=== PATIENT | male | born 1945 | race American Indian/Alaskan Native ===

== ENCOUNTER 2017-03-17 07:02 | Emergency (ER) | payer MEDICARE, BC ==
[2017-03-17 07:25] LABS: #Eosinphils 0.1 thou/uL (0.0-0.7); #Lymphocytes 1.1 thou/uL (1.20-3.40); #Monocytes 1.1 thou/uL (0.11-0.59); #Neutrophils 6.2 thou/uL (1.40-6.50); %Basophils 0.5 % (0.0-1.0); %Lymphocytes 13.3 % (21.0-51.0); %Monocytes 12.4 % (0.0-10.0); Hematocrit 49.1 % (42.0-52.0); Mean Platelet Volume 7.2 fL (7.4-10.4); Red Blood Cell (RBC) Count 5.59 mill/uL (4.70-6.10); White Blood Cell (WBC) Count 8.6 thou/uL (4.8-10.8)
[2017-03-17 07:51] LABS: Troponin I Less than 0.010 ng/mL (< 0.028)
--- NOTE | 2017-03-17 08:11 | RAD ---
PORTABLE CHEST ONE VIEW: 03/17/2017 7:41 a.m. HISTORY: Chest pain. FINDINGS: The heart size is normal. The lungs are well expanded without focal areas of consolidation, pneumoth orax, or pleural effusions. IMPRESSION: No radiographic evidence of acute cardiopulmonary process. POS: [facility]
[2017-03-17 08:51] LABS: ALT (SGPT) 19 U/L (8-55); AST (SGOT) 15 U/L (5-34); Alkaline Phosphatase 87 U/L (40-150); Anion Gap 14 mmol/L (10-20); BUN (Urea Nitrogen) 15 mg/dL (8.4-25.7); Bilirubin, Total 1.2 mg/dL (0.2-1.2); CK (CPK) 64 U/L (30-200); Calc. Creatinine Clearance 0 mL/min (70-130); Calcium 9.2 mg/dL (7.8-10.44); Carbon Dioxide 24 mmol/L (23-31); Chloride 101 mmol/L (98-107); Estimated GFR-MDRD Greater than 90; Protein, Total 7.1 g/dL (5.8-8.1)
[2017-03-17] MEDS ORDERED: Metoprolol Tartrate 5 MG/5 ML VIAL ONE (09:25)
--- NOTE | 2017-03-20 15:00 | EKG ---
Test Reason : FAST HEARTRATE Blood Pressure : / mmHG Vent. Rate : 109 BPM Atrial Rate : 109 BPM P-R Int : 158 ms QRS Dur : 116 ms QT Int : 348 ms P-R-T Axes : 059 -35 -02 degrees QTc Int : 468 ms Sinus tachycardia Possible Left atrial enlargement Left axis deviation Incomplete right bundle branch block Abnormal ECG Confirmed by STACY LAMB D.O. ([id number]), tape editor YINA ROA ([id number]) on 03/20/2017 2:59:30 PM Referred By: ZAINAB Confirmed By:STACY LAMB D.O.
--- NOTE | 2017-03-20 15:13 | EKG ---
Test Reason : #2 Blood Pressure : / mmHG Vent. Rate : 106 BPM Atrial Rate : 106 BPM P-R Int : 160 ms QRS Dur : 122 ms QT Int : 350 ms P-R-T Axes : 049 -30 004 degrees QTc Int : 464 ms Sinus tachycardia Left axis deviation Non-specific intra-ventricular conduction delay Abnormal ECG No changes Confirmed by STACY LAMB D.O. ([id number]), brands editor YINA ROA ([id number]) on 03/20/2017 3:13:17 PM Referred By: Confirmed By:STACY LAMB D.O.
== END 2017-03-17 10:55 | disposition home or self-care (01) ==
LOC: ERS 07:02
DX: R00.0 Tachycardia, unspecified (principal); E11.9 Type 2 diabetes mellitus without complications; E78.5 Hyperlipidemia, unspecified; Z86.73 Personal history of transient ischemic attack (TIA), and cerebral infarction without residual deficits; Z79.899 Other long term (current) drug therapy; Z79.84 Long term (current) use of oral hypoglycemic drugs
CPT/HCPCS: 36415; 71010; 80053; 80061; 82550; 82553; 84484; 85025; 93005; 94760; 96361; 96374

== ENCOUNTER 2018-09-13 12:38 | Outpatient (CLI) | payer MEDICARE, BC ==
--- NOTE | 2018-09-13 15:19 | MRI ---
EXAM: BRAIN MRI WITH AND WITHOUT CONTRAST: 09/13/18 COMPARISON: 06/29/13. HISTORY: Pulsatile tinnitus left ear, x1 month. TECHNIQUE: Brain MRI is performed with and without intravenous gadolinium administration. Multisequential, mult iplanar imaging is performed. FINDINGS: The calvarium has an appropriate T1 marrow signal intensity. Midline brain parenchymal structures are unremarkable. No brain parenchymal mass, mass effect or midline shift. Brain volume, age appropriate. Cortical quinteros -white matter differentiation is preserved. Ventricles and sulci are patent and symmetric. No significant T2 or FLAIR white matter hyperintensities. Central arterial flow voids are maintained. Absent restricted diffusion. Partial opacification secondary to sinus disease of the left sphenoid sinus. Minimal mucosa thickeni ng of the ethmoid air cells. Adequate mastoid air cell aeration. No pathologic enhancement of the brain parenchyma. MRI OF THE INTERNAL AUDITORY CANAL: Appropriate and essentially symmetric signal intensity of the 5th, 7th-8th cranial nerve complexes. T here is no abnormal enhancement or enhancing mass with regards to the cranial nerves. There is no abn ormal enhancement or enhancing mass within either internal auditory canal or either inner ear structu res. IMPRESSION: 1. No pathologic enhancement of the brain parenchyma. 2. Absent restricted diffusion. No acute infarct. 3. Brain volume, age appropriate. 4. No abnormal enhancement or signal intensity in either inner ear structure or either 7th-8th c ranial nerve complex/internal auditory canal. POS: [facility]
--- NOTE | 2018-09-13 16:00 | MRI ---
Magnetic resonance angiogram MRA head noncontrast: DATE: 09/13/2018 HISTORY: 72-year-old male with pulsatile tinnitus, left ear. TECHNIQUE: 3-D [id number] MRA in multiple axial slabs through solomon of [place]. Source images and 3-D MIP re constructions. FINDINGS: Anterior and posterior circulation arteries are of normal caliber with no high-grade stenosis, occlus ion, or irregularity. No abnormally large feeding vessels of AVM. No aneurysm greater than 3 mm identified. 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 IMPRESSION: Negative
== END 2018-09-13 12:39 | disposition home or self-care (01) ==
LOC: MRI 12:38
PROVIDERS: ATTEND Otolaryngology Plastic Surgery within the Head & Neck
DX: H93.A2 Pulsatile tinnitus, left ear (principal)
CPT/HCPCS: 70544; 70553

== ENCOUNTER 2018-11-14 05:40 | Day surgery (SDC) | payer MEDICARE, BC ==
[2018-11-01 08:27] VITALS: BMI 19.4
--- NOTE | 2018-11-09 15:48 | HP ---
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 The pain is now interfering with day-to-day activities including walking, getting dressed, and sleeping. He had previous right total knee replacement approximately 5 years ago with good results. PAST HISTORY: Please see the old chart. The patient has history of high cholesterol; previous TIA, on Plavix; diabetes; and sleep apnea. CURRENT MEDICATIONS: Include; 1. Avapro. 2. Januvia. 3. Metformin. 4. Protonix. 5. Metoprolol/hydrochlorothiazide. 6. Crestor. 7. Flomax. 8. Invokana. 9. Plavix. He has stopped the Plavix 1 week preoperatively. FAMILY HISTORY: Otherwise, unremarkable. SOCIAL HISTORY: Otherwise, unremarkable. REVIEW OF SYSTEMS: Otherwise, unremarkable. PHYSICAL EXAMINATION: GENERAL: Reveals a healthy, thin male. HEENT: Unremarkable. NECK: Supple. CHEST: Clear. HEART: Regular rate and rhythm. ABDOMEN: Soft and nontender. RECTAL: Deferred. GENITAL: Deferred. EXTREMITIES: Pertinent findings are related to the left knee. There is no effusion. No definite swelling. He has normal alignment. There is tenderness over the medial and lateral joint lines. Range of motion is 2 to 135 degrees. There is pain at extremes of motion. There is no instability. Neurovascular exam is intact. There is no pain with range of motion of the left hip. DIAGNOSTIC STUDIES: X-rays of the left knee reveal medial and lateral joint space narrowing, medial greater than lateral from previous x-rays. There is good alignment of the right total knee replacement. IMPRESSION: 1. Degenerative arthritis of left knee. 2. Status post right total knee replacement. 3. History of diabetes. 4. History of transient ischemic attack. PLAN: Left total knee replacement. The nature of the surgery, length of recovery, and potential complications such as infection, loss of knee motion, incomplete relief, thromboembolic phenomenon, neurovascular injury, possible transfusion, and need for revision have been discussed in detail. Job ID: [id number]
[2018-11-14] MEDS ORDERED: Sodium Chloride 0.9% 100 ML ONE (06:14)
[2018-11-14] MEDS ORDERED: Tranexamic Acid 1,000 MG/10 ML VIAL ONE ×2 (06:14→09:10)
[2018-11-14] MEDS ORDERED: Bupivacaine/Epinephrine 0.25% 30 ML VIAL ONE (06:30)
[2018-11-14] MEDS ORDERED: Midazolam HCl 2 mg/2 ml Vial ONE (06:37)
[2018-11-14] MEDS ORDERED: Fentanyl 100 MCG/2 ML VIAL ONE ×2 (06:37→07:13)
[2018-11-14] MEDS ORDERED: Ropivacaine HCl/PF 250 ML in Premix Bag 1 BAG NERVE BLCK SCH (07:20)
[2018-11-14] MEDS ORDERED: Ondansetron PF 4 MG/2 ML Vial IVP PRN ×3 (07:20→09:13)
[2018-11-14] MEDS ORDERED: Promethazine HCl 25 MG/ML VIAL IM PRN ×2 (07:20→09:13)
[2018-11-14] MEDS ORDERED: traMADol HCl 50 MG TAB PO PRN ×3 (07:20→09:08)
[2018-11-14] MEDS ORDERED: HYDROcodone/Acetaminophen 10/325 mg Tablet PO PRN ×4 (07:20→09:08)
[2018-11-14] MEDS ORDERED: Zolpidem Tartrate 5 MG TAB PO PRN ×3 (07:20→09:13)
[2018-11-14] MEDS ORDERED: Acetaminophen 325 MG TAB PO PRN (09:08)
[2018-11-14] MEDS ORDERED: Promethazine HCl 25 MG/ML VIAL SLOW IVP PRN (09:08)
[2018-11-14] MEDS ORDERED: Fentanyl 100 MCG/2 ML VIAL SLOW IVP PRN ×2 (09:08)
[2018-11-14] MEDS ORDERED: diphenhydrAMINE 25 MG CAP PO PRN ×2 (09:08→09:13)
[2018-11-14] MEDS ORDERED: Tranexamic Acid 1,000 MG in Sodium Chloride 0.9% 100 ML IVPB SCH ×2 (09:08→09:15)
[2018-11-14] MEDS ORDERED: Non-Formulary Item 1 EACH (Sitagliptin Phosphate [Januvia] 50 MG) PO SCH (09:08)
[2018-11-14] MEDS ORDERED: Naloxone HCl 0.4 mg/ml Vial IV PRN (09:13)
[2018-11-14] MEDS ORDERED: fentaNYL Citrate/PF 2,000 MCG in Sodium Chloride 0.9% 60 ML IV PRN (09:13)
[2018-11-14] MEDS ORDERED: diphenhydrAMINE 50 MG/ML VIAL IM PRN (09:13)
[2018-11-14] MEDS ORDERED: diphenhydrAMINE 50 MG/ML VIAL IVP PRN (09:13)
[2018-11-14] MEDS ORDERED: Communication Order-Pharmacy FS SCH (09:15)
--- NOTE | 2018-11-14 10:28 | RAD ---
LEFT KNEE 2 VIEWS: HISTORY: Recent postop total knee arthroplasty changes. FINDINGS: No dislocation or periprosthetic fracture. IMPRESSION: Unremarkable recent total knee arthroplasty. POS: [facility]
[2018-11-14] MEDS: Sodium Chloride 0.9% 1,000 ML IV SCH ×2 (11:15→20:34)
[2018-11-14] MEDS: Multivitamin W/ Minerals 1 TAB PO SCH (11:15)
[2018-11-14] MEDS: Senokot S 8.6-50 MG TAB PO SCH ×2 (11:15→21:21)
[2018-11-14] MEDS ORDERED: Ketorolac Tromethamine 30 MG/ML VIAL IVP SCH (12:00)
[2018-11-14] MEDS: Ketorolac Tromethamine 30 MG/ML VIAL IVP SCH ×3 (12:35→23:35)
[2018-11-14] MEDS ORDERED: Ropivacaine 0.5% HCl/PF (150 MG/30 ML VIAL) ONE (13:41)
[2018-11-14] MEDS ORDERED: Ropivacaine 0.2% HCl/PF (40 MG/20 ML VIAL) ONE (13:41)
[2018-11-14] MEDS ORDERED: PROPOFOL 200 MG/20 ML VIAL ONE (14:19)
[2018-11-14] MEDS ORDERED: Metoclopramide HCl 10 MG/2 ML VIAL ONE (14:19)
[2018-11-14] MEDS ORDERED: Lidocaine 1% PF 5 ML VIAL ONE (14:19)
[2018-11-14] MEDS ORDERED: ePHEDrine 50 MG/ML VIAL ONE (14:19)
[2018-11-14] MEDS ORDERED: Ondansetron PF 4 MG/2 ML Vial ONE (14:19)
[2018-11-14] MEDS: CEFAZOLIN 2 GM in Premix Bag 1 BAG IVPB SCH ×2 (14:58→22:25)
--- NOTE | 2018-11-14 15:27 | OP ---
DATE OF PROCEDURE: 11/14/2018 AMMUNITION ASSEMBLY LABORER: Cat Ghotra PA-C. ANESTHESIA: General plus adductor canal and sciatic nerve blocks. PREOPERATIVE DIAGNOSIS: Degenerative arthritis of left knee. POSTOPERATIVE DIAGNOSIS: Degenerative arthritis of left knee. PROCEDURE PERFORMED: Left total knee replacement with computer-assisted navigation with cemented [employer] components (#3 femoral component, #4 primary tibial baseplate with 9 mm CS plastic insert, and all-plastic A29 patellar component). DESCRIPTION OF PROCEDURE: After satisfactory anesthesia was induced in supine position, sequential compression device was placed on the nonoperative leg throughout the procedure. The left leg was then prepped and draped in routine sterile fashion. The leg was elevated and exsanguinated with an Esmarch bandage and the tourniquet inflated to 250 mmHg. A gently curved medial parapatellar incision was made, carried down through the subcutaneous tissues, and bleeding points were controlled with Bovie cautery. Medial parapatellar arthrotomy was performed. The patella was dislocated laterally and portions of the fat pad were excised for exposure. There were tricompartmental degenerative changes. Meniscal remnants and osteophytes were removed. Using the [employer] pinless navigation system and the appropriate guides, the distal femoral and proximal tibial articular surfaces were excised with an oscillating saw to accept the trial components. It was felt that a #3 femoral component and #4 primary tibial baseplate with 9 mm CS plastic insert gave appropriate size, fit, and stability. The patellar articular surface was excised to accept an all-plastic A29 patellar component. There was good range of motion and good patellar tracking. The trial components were removed. The knee was copiously irrigated with pulsatile lavage and the bony surfaces were thoroughly cleaned and dried. The permanent components were then cemented in a single stage using 1 package of cement premixed with 1 g of tobramycin powder. Excess cement was removed. There was again good fit and stability of the components. The knee was again copiously irrigated. The medial retinaculum and quadriceps mechanism was closed with interrupted #2 Vicryl and a running #2 Quill. Subcutaneous tissues were closed with running 0 Quill suture and the skin was closed with running subcuticular 3-0 Monoderm and SurgiSeal skin adhesive. A sterile bulky compressive dressing was applied. The tourniquet deflated after 65 minutes. The foot promptly pinked up. A sequential compression device was placed on the operated leg. He was awakened and taken to the recovery room in stable condition. There were no apparent intraoperative complications. The estimated blood loss was less than 100 mL. Job ID: [id number]
[2018-11-14] MEDS: Losartan 25 MG TAB PO SCH (16:55)
[2018-11-14] MEDS ORDERED: METFORMIN HCL 2000 MG PO SCH (17:00)
[2018-11-14] MEDS ORDERED: IRBESARTAN PO SCH (17:00)
[2018-11-14] MEDS ORDERED: Non-Formulary Item 1 EACH (Canagliflozin [Invokana] 1 TAB) PO SCH (17:00)
[2018-11-14] MEDS ORDERED: Canagliflozin [Invokana] 1 TAB PO SCH (17:00)
[2018-11-14] MEDS: metFORMIN XR 500 MG TAB PO SCH (17:24)
[2018-11-14] MEDS ORDERED: HumaLOG 300 UNITS/3 ML VIAL SC PRN ×2 (18:11)
[2018-11-14] MEDS ORDERED: Dextrose 5% in Water 1,000 ML IV PRN (18:11)
[2018-11-14] MEDS ORDERED: Dextrose 50% Abboject 50 ML SYRINGE SLOW IVP PRN (18:11)
--- NOTE | 2018-11-14 18:29 | PDOC.HOSPP ---
- Subjective Encounter Date: 11/14/18 Encounter Time: 18:15 Subjective: Consult for gen med mgmt. s/p L TKA with severe DJD. Feels ok overall on DIABETES CLINICAL MANAGER and Nerve block therapy. Hx of DM on Invokana and Metformin. No CP, SOB - Objective Vital Signs & Weight: Vital Signs (12 hours) Temp Pulse Resp BP Pulse Ox 11/14/18 15:46 98.3 F 74 16 122/60 99 11/14/18 10:40 97.3 F L 72 20 122/70 98 Weight Weight 128 lb Additional Labs: Laboratory Tests 09/12/18 11/01/18 14:44 09:13 Sodium 140 Potassium 5.3 H Chloride 108 H Carbon Dioxide 25 BUN 17 Creatinine 0.91 Estimated GFR (MDRD) 82 Hemoglobin A1c 6.9 H EKG Reviewed by me: Yes (Sinus yuni, RBBB) ROS - Medication Medications: Active Medications Generic Name Dose Route Start Last Admin Trade Name Freq PRN Reason Stop Dose Admin Cefazolin Sodium/Dextrose 2 gm 50 mls @ 100 mls/hr 11/14/18 14:00 11/14/18 14 :58 / Device IVPB 11/14/18 22:29 50 mls Q8HR IGTA Administration Sodium Chloride 1,000 mls @ 100 mls/hr 11/14/18 09:08 11/14/18 11:15 Normal Saline 0.9% IV Not Given .Q10H GITA Iron/Minerals/Multivitamins 1 tab 11/14/18 09:08 11/14/18 11:15 Theragran M PO Not Given DAILY GITA Ketorolac Tromethamine 15 mg 11/14/18 12:00 11/14/18 17:25 Toradol IVP 11/16/18 06:01 15 mg Q6HR GITA Administration Losartan Potassium 25 mg 11/14/18 17:00 11/14/18 16:55 Cozaar PO Not Given QPM-WM GITA Metformin HCl 2,000 mg 11/14/18 17:00 11/14/18 17:24 Glucophage Xr PO 2,000 mg QPM-WM GITA Administration Metoprolol Succinate 37.5 mg 11/14/18 17:30 11/14/18 17:46 Toprol Xl PO 11/14/18 19:30 37.5 mg NOW GITA Administration Senna/Docusate Sodium 2 tab 11/14/18 09:08 11/14/18 11:15 Senokot S PO Not Given BID GITA Sodium Chloride 10 ml 11/14/18 09:00 11/14/18 11:15 Flush - Normal Saline IVF Not Given Q12HR GITA - Exam NAD, awake alert Eye: PERRL, anicteric sclera ENT: normocephalic atraumatic, no oropharyngeal lesions Neck: supple, symmetric, no JVD, no thyromegaly Heart: RRR, no murmur, no gallops, no rubs Respiratory: CTAB, no wheezes, no rales, no ronchi Gastrointestinal: soft, non-tender, non-distended, normal bowel sounds, no palpable masses, no hepatomegaly, no splenomegaly, no bruit Extremeties - other findings: LLE with KVNG wrap, surgical dressings in place Neurological: CN's grossly intact, no new deficit Psychiatric: normal affect, normal behavior, A&O x 3 Hosp A/P (1) DM II (diabetes mellitus, type II), controlled Code(s): E11.9 - TYPE 2 DIABETES MELLITUS WITHOUT COMPLICATIONS Status: Chronic Plan: Continue Metformin, Januvia, ISS (2) Hyperkalemia Code(s): E87.5 - HYPERKALEMIA Status: Acute Plan: Mild elevation and ?hemolyzed sample, repeat BMP in am (3) DJD (degenerative joint disease) Code(s): M19.90 - UNSPECIFIED OSTEOARTHRITIS, UNSPECIFIED SITE Status: Chronic Qualifiers: Osteoarthritis location: knee Laterality: left Plan: s/p TKR, continue Joint U protocol, DVT ppx with Xarelto, pain control, early mobilization - Plan plan discussed w/ family, continue antibiotics, PT/OT, psych social worker, out of bed/ambulate, DVT proph w/SCDs Stable currently Continue Metformin/Januvia Continue IV abx therapy Xarelto 10mg daily OOB with PT Pain control as clinically indicated AM lab: BMP, CBC Thank you for the consult, will continue to follow with primary service.
[2018-11-14] MEDS: Rosuvastatin 10 MG TAB PO SCH (20:29)
[2018-11-14] MEDS: Tamsulosin HCl 0.4 MG CAP PO SCH (20:29)
[2018-11-14] MEDS: Alogliptin 6.25 MG TAB PO SCH (20:30)
[2018-11-14] MEDS ORDERED: Non-Formulary Item 1 EACH (Travoprost [Travatan Z] 1 DROP) EA EYE SCH (21:00)
[2018-11-14] MEDS ORDERED: Metoprolol Tartrate 25 MG TAB PO SCH (21:00)
[2018-11-14] MEDS ORDERED: Vancomycin HCl 1 GM in Premix Bag 1 BAG IVPB SCH (21:00)
[2018-11-14] MEDS: Latanoprost 0.005% Ophth Soln 2.5 ml Bottle EA EYE SCH (21:17)
[2018-11-15 05:03] LABS: Hemoglobin 13.9 g/dL (14.0-18.0); Mean Corpuscular HGB CONC 32.3 g/dL (32.0-36.0); Mean Corpuscular Hemoglobin 26.6 pg (27.0-31.0); Mean Corpuscular Volume 82.2 fL (78.0-98.0); Mean Platelet Volume 7.5 fL (7.4-10.4); Platelet Count 171 thou/uL (130-400); RBC Distribution Width 12.4 % (11.5-14.5); Red Blood Cell (RBC) Count 5.21 mill/uL (4.70-6.10); White Blood Cell (WBC) Count 7.9 thou/uL (4.8-10.8)
[2018-11-15 05:16] LABS: Anion Gap 11 mmol/L (10-20); BUN (Urea Nitrogen) 17 mg/dL (8.4-25.7); Calc. Creatinine Clearance 63 mL/min (70-130); Calcium 8.3 mg/dL (7.8-10.44); Carbon Dioxide 24 mmol/L (23-31); Chloride 101 mmol/L (98-107); Estimated GFR-MDRD 84; Glucose 124 mg/dL (83-110); Potassium 4.4 mmol/L (3.5-5.1); Sodium 132 mmol/L (136-145)
[2018-11-15] MEDS: Sodium Chloride 0.9% 1,000 ML IV SCH ×2 (05:36→14:34)
[2018-11-15] MEDS: Ketorolac Tromethamine 30 MG/ML VIAL IVP SCH ×3 (05:55→18:16)
[2018-11-15] MEDS: Senokot S 8.6-50 MG TAB PO SCH ×2 (09:45→21:34)
[2018-11-15] MEDS: Alogliptin 6.25 MG TAB PO SCH ×2 (09:45→21:33)
[2018-11-15] MEDS: Rivaroxaban 10 MG TAB PO SCH (09:45)
[2018-11-15] MEDS: Multivitamin W/ Minerals 1 TAB PO SCH (09:45)
--- NOTE | 2018-11-15 14:09 | PRG ---
DATE OF SERVICE: 11/15/2018 SUBJECTIVE: Anca is a 73-year-old male, who is postop day 1 from a left total knee arthroplasty by Dr. Ochoa. He is doing very well. His pain is controlled and he is currently comfortable. He has no complaints. OBJECTIVE: VITAL SIGNS: Temperature 98.4, pulse 99, respiratory rate 16, blood pressure is 160/77. GENERAL: He is alert and oriented to person, place, time, and situation. Nonfocal, responsive and appropriate with examiner. His incision is clean and closed. There is no erythema. No strike through and he is neurovascularly intact in the left lower extremity. IMPRESSION: 1. A 73-year-old male, postop day 1 left total knee arthroplasty. 2. Diabetes type 2. PLAN: Continue current care. Probable discharge home tomorrow. Job ID: [id number]
[2018-11-15] MEDS: Losartan 25 MG TAB PO SCH (16:33)
[2018-11-15] MEDS: metFORMIN XR 500 MG TAB PO SCH (16:33)
--- NOTE | 2018-11-15 17:01 | PDOC.HOSPP ---
- Subjective Encounter Date: 11/15/18 Encounter Time: 17:00 Subjective: f/u s/p L TKA POD #1, fever spike noted. No BM but + flatus. No N/V. Some chills but no cough. Using IS. - Objective Vital Signs & Weight: Vital Signs (12 hours) Temp Pulse Resp BP BP Pulse Ox 11/15/18 16:54 98.4 F 11/15/18 16:22 101.1 F H 113 H 16 155/84 H 96 11/15/18 12:32 98.4 F 99 16 160/77 H 97 11/15/18 08:13 98.3 F 86 16 114/63 98 Weight Admit Weight 128 lb Weight 128 lb I&O: 11/14/18 11/15/18 11/16/18 06:59 06:59 06:59 Intake Total 1500 Balance 1500 Result Diagrams: 11/15/18 04:36 11/15/18 04:36 Additional Labs: Accuchecks 11/15/18 06:19 POC Glucose 125 H Hospitalist ROS - Medication Medications: Active Medications Generic Name Dose Route Start Last Admin Trade Name Paulq PRN Reason Stop Dose Admin Alogliptin Benzoate 12.5 mg 11/14/18 21:00 11/15/18 09:45 Alogliptin PO 12.5 mg BID GITA Administration Ropivacaine 250 ml/ Device 250 mls @ 0 mls/hr 11/14/18 07:20 11/15/18 12:21 NERVE BLCK 250 mls INF GITA Administration As Directed Sodium Chloride 1,000 mls @ 100 mls/hr 11/14/18 09:08 11/15/18 14:34 Normal Saline 0.9% IV Not Given .Q10H GITA Iron/Minerals/Multivitamins 1 tab 11/14/18 09:08 11/15/18 09:45 Theragran M PO 1 tab DAILY GITA Administration Ketorolac Tromethamine 15 mg 11/14/18 12:00 11/15/18 13:24 Toradol IVP 11/16/18 06:01 Not Given Q6HR GITA Latanoprost 1 drop 11/14/18 21:00 11/14/18 21:17 Xalatan 0.005% Ophth Soln EA EYE Not Given HS GITA Losartan Potassium 25 mg 11/14/18 17:00 11/15/18 16:33 Cozaar PO 25 mg QPM-WM GITA Administration Metformin HCl 2,000 mg 11/14/18 17:00 11/15/18 16:33 Glucophage Xr PO 2,000 mg QPM-WM GITA Administration Metoprolol Succinate 37.5 mg 11/15/18 17:00 11/15/18 16:33 Toprol Xl PO 37.5 mg QPM-WM GITA Administration Pantoprazole Sodium 40 mg 11/15/18 09:00 11/15/18 09:45 Protonix PO 40 mg QAM GITA Administration Rivaroxaban 10 mg 11/15/18 09:00 11/15/18 09:45 Xarelto PO 10 mg DAILY GITA Administration Rosuvastatin Calcium 10 mg 11/14/18 21:00 11/14/18 20:29 Crestor PO 10 mg HS GITA Administration Senna/Docusate Sodium 2 tab 11/14/18 09:08 11/15/18 09:45 Senokot S PO 2 tab BID GITA Administration Sodium Chloride 10 ml 11/14/18 09:00 11/15/18 09:48 Flush - Normal Saline IVF Not Given Q12HR GITA Tamsulosin HCl 0.4 mg 11/14/18 21:00 11/14/18 20:29 Flomax PO 0.4 mg HS GITA Administration - Exam General Appearance: NAD, awake alert Eye: PERRL, anicteric sclera ENT: normocephalic atraumatic, no oropharyngeal lesions Neck: supple, symmetric, no JVD, no thyromegaly, no lymphadenopathy Heart: RRR, no murmur, no gallops, no rubs, normal peripheral pulses Respiratory: CTAB, no wheezes, no rales, no ronchi, normal chest expansion Gastrointestinal: soft, non-tender, non-distended, normal bowel sounds, no palpable masses Extremeties - other findings: L knee with post-op changes, + edema and mild erythema Skin: normal turgor Neurological: CN's grossly intact, no focal deficits, no new deficit Musculoskeletal: normal tone, normal strength, no muscle wasting Psychiatric: normal affect, normal behavior, A&O x 3 Hosp A/P (1) Febrile Code(s): R50.9 - FEVER, UNSPECIFIED Status: Acute Plan: Intermittent spike, check UA, suspect routine post-op fever but will monitor closely, consider blood cx if second spike occurs (2) DM II (diabetes mellitus, type II), controlled Code(s): E11.9 - TYPE 2 DIABETES MELLITUS WITHOUT COMPLICATIONS Status: Chronic (3) Hyperkalemia Code(s): E87.5 - HYPERKALEMIA Status: Acute Plan: Resolved (4) DJD (degenerative joint disease) Code(s): M19.90 - UNSPECIFIED OSTEOARTHRITIS, UNSPECIFIED SITE Status: Chronic Qualifiers: Osteoarthritis location: knee Laterality: left (5) Sinus tachycardia Code(s): R00.0 - TACHYCARDIA, UNSPECIFIED Status: Acute Plan: Secondary to pain, post-op pain and fever, improved currently, continue Metoprolol - Plan plan discussed w/ family, PT/OT, rn social services, incentive spirometry, out of bed/ambulate Stable currently Continue Metformin/Januvia Check UA now Xarelto 10mg daily OOB with PT Pain control as clinically indicated, FRIT MAKER and nerve block Incentive spirometry/OOB
[2018-11-15 18:28] LABS: Bacteria/HPF None Seen HPF (None Seen); Bilirubin Negative (Negative); Blood, Urine 1+ (Negative); Clarity Clear (Clear); Glucose, Urine (Dipstick) Greater than 1000 mg/dL (Negative); Leukocyte Negative Leu/uL (Negative); Nitrite Negative (Negative); Protein, Urine (Dipstick) Negative (Neg-Trace); RBC/HPF 0-3 HPF (0-3); Squamous Epithelial None Seen HPF (0-3); Urobilinogen Normal mg/dL (Less than 2); WBC/HPF 0-3 HPF (0-3)
[2018-11-15 18:32] LABS: Urine Culture Reflex No No
[2018-11-15] MEDS: Tamsulosin HCl 0.4 MG CAP PO SCH (21:34)
[2018-11-15] MEDS: Rosuvastatin 10 MG TAB PO SCH (21:35)
[2018-11-15] MEDS: Latanoprost 0.005% Ophth Soln 2.5 ml Bottle EA EYE SCH (21:35)
[2018-11-16] MEDS: Ketorolac Tromethamine 30 MG/ML VIAL IVP SCH ×2 (00:03→06:08)
[2018-11-16] MEDS: Sodium Chloride 0.9% 1,000 ML IV SCH ×2 (04:46→19:17)
--- NOTE | 2018-11-16 08:24 | ULT ---
ULTRASOUND WITH DOPPLER DUPLEX VENOUS LOWER EXTREMITY LEFT: CPT: 67175 ICD-10-PCS: B54D HISTORY: Recent knee replacement, pain, edema. TECHNIQUE: Color flow Doppler, spectral waveform analysis of pulsed Doppler, and quinteros-scale imaging with chiqui jonathon and augmentation, were used to evaluate the bilateral common femoral, femoral, popliteal, launch operator ior tibial, and superficial femoral, veins; and the proximal portions of the profunda femoral and gre ater saphenous, veins. FINDINGS: There is appropriate compressibility and flow within the imaged deep vein system of the left lower ex tremity without evidence of thrombus. IMPRESSION: No deep vein thrombosis. POS: [facility]
[2018-11-16] MEDS: Rivaroxaban 10 MG TAB PO SCH (09:43)
[2018-11-16] MEDS: Multivitamin W/ Minerals 1 TAB PO SCH (09:43)
[2018-11-16] MEDS: Alogliptin 6.25 MG TAB PO SCH ×2 (09:43→21:05)
[2018-11-16] MEDS: Senokot S 8.6-50 MG TAB PO SCH ×2 (09:50→21:06)
[2018-11-16] MEDS ORDERED: HYDROcodone/Acetaminophen 10/325 mg Tablet PO PRN (10:11)
[2018-11-16] MEDS ORDERED: Fentanyl 100 MCG/2 ML VIAL SLOW IVP PRN (10:11)
[2018-11-16] MEDS: HYDROcodone/Acetaminophen 10/325 mg Tablet PO PRN ×2 (10:55→18:23)
[2018-11-16] MEDS ORDERED: Metoprolol Tartrate 25 MG TAB PO SCH (14:00)
[2018-11-16] MEDS ORDERED: Metoprolol Tartrate 5 MG/5 ML VIAL IVP PRN (16:46)
--- NOTE | 2018-11-16 17:44 | PDOC.HOSPP ---
- Subjective Encounter Date: 11/16/18 Encounter Time: 17:40 Subjective: f/u s/p TKA POD #2. Apparently noted with sinus tachycardia and moved to telemetry unit tx with Metoprolol IVP with decreased HR into 90's. No new complaints. - Objective Vital Signs & Weight: Vital Signs (12 hours) Temp Pulse Resp BP Pulse Ox 11/16/18 15:10 97.8 F 120 H 16 132/76 97 11/16/18 11:01 97.8 F 122 H 20 142/80 H 98 11/16/18 08:00 98 11/16/18 07:57 97.3 F L 121 H 18 137/85 98 Weight Admit Weight 128 lb Weight 128 lb I&O: 11/15/18 11/16/18 11/17/18 06:59 06:59 06:59 Intake Total 1500 1860 Balance 1500 1860 Result Diagrams: 11/15/18 04:36 11/15/18 04:36 Additional Labs: Accuchecks 11/16/18 10:55 POC Glucose 195 H Laboratory Tests 09/12/18 11/01/18 14:44 09:13 Sodium 140 Potassium 5.3 H Chloride 108 H Carbon Dioxide 25 BUN 17 Creatinine 0.91 Estimated GFR (MDRD) 82 Hemoglobin A1c 6.9 H Radiology Reviewed by me: Yes (LLE sono -neg for DVT) EKG Reviewed by me: Yes (Tele - sinus tachycardia in 120's, now in 90's) Hospitalist ROS - Medication Medications: Active Medications Generic Name Dose Route Start Last Admin Trade Name Freq PRN Reason Stop Dose Admin Hydrocodone Bitart/Acetaminophen 2 tab 11/16/18 10:11 11/16/18 10:55 [place] 10/325 PO 2 tab Q4H PRN Administration PAIN (5-10) Alogliptin Benzoate 12.5 mg 11/14/18 21:00 11/16/18 09:43 Alogliptin PO 12.5 mg BID GITA Administration Iron/Minerals/Multivitamins 1 tab 11/14/18 09:08 11/16/18 09:43 Theragran M PO 1 tab DAILY GITA Administration Latanoprost 1 drop 11/14/18 21:00 11/15/18 21:35 Xalatan 0.005% Ophth Soln EA EYE Not Given HS GITA Losartan Potassium 25 mg 11/14/18 17:00 11/15/18 16:33 Cozaar PO 25 mg QPM-WM GITA Administration Metformin HCl 2,000 mg 11/14/18 17:00 11/15/18 16:33 Glucophage Xr PO 2,000 mg QPM-WM GITA Administration Metoprolol Tartrate 5 mg 11/16/18 16:46 11/16/18 17:06 Lopressor IVP 11/16/18 23:00 5 mg ONE PRN Administration UPON ARRIVAL TO TELEMETRY Pantoprazole Sodium 40 mg 11/15/18 09:00 11/16/18 09:43 Protonix PO 40 mg QAM GITA Administration Rivaroxaban 10 mg 11/15/18 09:00 11/16/18 09:43 Xarelto PO 10 mg DAILY GITA Administration Rosuvastatin Calcium 10 mg 11/14/18 21:00 11/15/18 21:35 Crestor PO 10 mg HS GITA Administration Senna/Docusate Sodium 2 tab 11/14/18 09:08 11/16/18 09:50 Senokot S PO 2 tab BID GITA Administration Sodium Chloride 10 ml 11/14/18 09:00 11/16/18 16:33 Flush - Normal Saline IVF Not Given Q12HR GITA Tamsulosin HCl 0.4 mg 11/14/18 21:00 11/15/18 21:34 Flomax PO 0.4 mg HS GITA Administration - Exam General Appearance: NAD, awake alert Eye: PERRL, anicteric sclera ENT: normocephalic atraumatic, no oropharyngeal lesions Neck: supple, symmetric, no JVD, no thyromegaly, no lymphadenopathy Heart: RRR, no murmur, no gallops, no rubs, normal peripheral pulses Respiratory: CTAB, no wheezes, no rales, no ronchi Gastrointestinal: soft, non-tender, non-distended, normal bowel sounds Extremeties - other findings: LLE with dressing in place on knee Neurological: CN's grossly intact, no focal deficits, no new deficit Musculoskeletal: normal tone, normal strength Psychiatric: A&O x 3 Hosp A/P (1) Febrile Code(s): R50.9 - FEVER, UNSPECIFIED Status: Acute Plan: Transient fever now resolved, no focal infection identified (2) Sinus tachycardia Code(s): R00.0 - TACHYCARDIA, UNSPECIFIED Status: Acute Plan: Metoprolol IVP, increased Metoprolol dosing per Cardiology, serial monitoring on tele unit, check Mg++, TSH, CBC (3) DM II (diabetes mellitus, type II), controlled Code(s): E11.9 - TYPE 2 DIABETES MELLITUS WITHOUT COMPLICATIONS Status: Chronic (4) Hyperkalemia Code(s): E87.5 - HYPERKALEMIA Status: Acute (5) DJD (degenerative joint disease) Code(s): M19.90 - UNSPECIFIED OSTEOARTHRITIS, UNSPECIFIED SITE Status: Chronic Qualifiers: Osteoarthritis location: knee Laterality: left Plan: s/p L TKA POD #2 - Plan plan discussed w/ family, PT/OT, out of bed/ambulate Stable currently Continue Metformin/Januvia UA negative Xarelto 10mg daily OOB with PT Incentive spirometry/OOB Telemetry monitoring Metoprolol dosing increased AM lab: CMP, CBC, Mg++, TSH
[2018-11-16] MEDS: Losartan 25 MG TAB PO SCH (18:04)
[2018-11-16] MEDS: metFORMIN XR 500 MG TAB PO SCH (18:04)
[2018-11-16] MEDS ORDERED: Flecainide 50 MG TAB PO SCH (18:30)
--- NOTE | 2018-11-16 18:58 | CON ---
DATE OF CONSULTATION: 11/16/2018 REASON FOR CONSULTATION: Tachycardia. 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 He recently had knee replacement. In the postoperative period, he has had some rapid heart rates. They have been transient. However, today the heart rate has been 124 beats per minute consistently since early this morning. He had a study looking for deep venous thrombosis that was negative. EKG, rate is 124 with no significant changes. There is no chest pain or pressure. The patient had a recent evaluation for ischemic heart disease. There is no evidence of any ischemia. He has normal left ventricular function. MEDICATIONS: At home, he takes; 1. Toprol-XL 37.5 mg a day. 2. Rosuvastatin 10 mg a day. 3. Plavix 75 mg a day. ALLERGIES: RAMIPRIL. REVIEW OF SYSTEMS: CONSTITUTIONAL: No significant weight gain or loss. VISION: No changes. HEARING: No changes. PULMONARY: No cough or wheezing. GASTROINTESTINAL: No nausea, vomiting, or diarrhea. SKIN: No rashes. NEUROLOGIC: No unilateral weakness or numbness. PSYCHIATRIC: No unusual depression or anxiety. PHYSICAL EXAMINATION: GENERAL: This is a very pleasant 73-year-old gentleman, in no distress. VITAL SIGNS: Blood pressure 130 systolic, pulse is 124, it is regular. HEENT: Eyes; sclerae, nonicteric. Mouth, mucous membranes are moist. NECK: Supple. No lymphadenopathy. LUNGS: Clear. CARDIAC: Tachycardiac. No murmur, rub, or gallop. ABDOMEN: Soft, nontender. EXTREMITIES: No clubbing. No cyanosis or edema. DIAGNOSTIC STUDIES: EKG initially showed sinus bradycardia, rate of 59 with a right bundle-branch block, which is old. EKGs now have shown a supraventricular rhythm at a rate of 124. I think it is probably an atrial tachycardia, suspect the second P-wave is buried in the QRS as the rate is not varying at all. ASSESSMENT: 1. Postoperative for knee replacement, doing well. 2. It looks most likely atrial tachycardia. PLAN: 1. We will move him to telemetry for intravenous metoprolol. 2. In the meantime, we will give an extra dose of oral short-acting metoprolol. 3. Hopefully home soon if he converts, eventually consideration for atrial tachycardia ablation. Job ID: [id number]
[2018-11-16] MEDS: Tamsulosin HCl 0.4 MG CAP PO SCH (21:05)
[2018-11-16] MEDS: Rosuvastatin 10 MG TAB PO SCH (21:05)
[2018-11-16] MEDS: Latanoprost 0.005% Ophth Soln 2.5 ml Bottle EA EYE SCH (21:05)
[2018-11-17] MEDS: Latanoprost 0.005% Ophth Soln 2.5 ml Bottle EA EYE SCH (00:38)
[2018-11-17] MEDS: HYDROcodone/Acetaminophen 10/325 mg Tablet PO PRN ×2 (02:35→08:36)
[2018-11-17 05:30] LABS: Band 7 % (5-11); Lymphocytes 9 % (21-51); MDiff Complete? YES; Mean Corpuscular HGB CONC 33.1 g/dL (32.0-36.0); Mean Corpuscular Hemoglobin 27.1 pg (27.0-31.0); Mean Corpuscular Volume 81.7 fL (78.0-98.0); Monocytes 3 % (0-10); Neutrophil 81 % (42-75); Platelet Count 158 thou/uL (130-400); Platelet Morphology Comment Appears Adequate; RBC Distribution Width 12.4 % (11.5-14.5); Red Blood Cell (RBC) Count 4.44 mill/uL (4.70-6.10)
[2018-11-17 05:37] LABS: ALT (SGPT) 13 U/L (8-55); AST (SGOT) 25 U/L (5-34); Albumin 3.2 g/dL (3.4-4.8); Alkaline Phosphatase 61 U/L (40-150); Anion Gap 10 mmol/L (10-20); BUN (Urea Nitrogen) 15 mg/dL (8.4-25.7); Bilirubin, Total 1.1 mg/dL (0.2-1.2); Calc. Creatinine Clearance 70 mL/min (70-130); Calcium 8.4 mg/dL (7.8-10.44); Carbon Dioxide 22 mmol/L (23-31); Chloride 101 mmol/L (98-107); Estimated GFR-MDRD Greater than 90; Globulin 2.7 g/dL (2.4-3.5); Glucose 192 mg/dL (83-110); Magnesium 1.7 mg/dL (1.6-2.6); Protein, Total 5.9 g/dL (5.8-8.1); Sodium 129 mmol/L (136-145)
[2018-11-17] MEDS: Multivitamin W/ Minerals 1 TAB PO SCH (08:35)
[2018-11-17] MEDS: Rivaroxaban 10 MG TAB PO SCH (08:35)
[2018-11-17] MEDS: Alogliptin 6.25 MG TAB PO SCH (08:35)
[2018-11-17] MEDS: Senokot S 8.6-50 MG TAB PO SCH (08:41)
[2018-11-17] MEDS ORDERED: Flecainide 50 MG TAB PO SCH (09:00)
--- NOTE | 2018-11-17 12:17 | CON ---
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 His problems are; 1. Periodic atrial tachycardia. a. EKG from this admit reveals an atrial tachycardia with rates of 124 beats per minute, P-waves similar to sinus P-waves, but with clear termination on telemetry strips. 2. Status post total knee replacement. 3. History of negative stress test and preserved LVEF per Dr. Rubalcava's workup. ALLERGIES: RAMIPRIL. MEDICATIONS: At home include; 1. Crestor. 2. Metformin. 3. Tamsulosin. 4. Sitagliptin. 5. Clopidogrel. 6. Irbesartan. 7. Canagliflozin. 8. Pantoprazole. 9. Travoprost. 10. Metoprolol succinate 37.5 mg at bedtime. 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 He undergone a procedure well without difficulty. In recovery, he was noted to have elevated heart rates with EKGs similar to the sinus P-waves preceding the QRS. Eventually, Dr. Rubalcava decided to initiate him on flecainide 50 mg twice a day and he had no recurrence of atrial tachycardia since. Currently, he is feeling well except for the knee pain, which is improving. Still receiving narcotic medications for that. Denies dizziness or loss of consciousness. No stroke-like symptoms. No neurological deficits. No fever, chills, or cough and rest of 12-point review of system also unremarkable. PAST MEDICAL HISTORY: History of diabetes, sleep apnea, high cholesterol, and prior TIA. SOCIAL HISTORY: The patient works as a physician in town. Denies smoking, EtOH , or drug abuse. FAMILY HISTORY: Not contributory. OBJECTIVE DATA: VITAL SIGNS: Blood pressure 140/76, heart rate 94, respirations 16, and temperature 98.3 degrees Fahrenheit. GENERAL: Alert and oriented man, in no apparent distress. NECK: Supple. Jugular veins not distended. CHEST: Coarse without crackles. HEART: Sounds are regular to rate and rhythm. No murmur or gallop. ABDOMEN: Benign. Bowel sounds positive. EXTREMITIES: Lower extremities without edema, clubbing, or cyanosis. Pulses are adequate. NEUROLOGIC: The patient is nonfocal. MUSCULOSKELETAL: Without joint swelling or deformity. SKIN: Without rash. DATABASE: EKG is reviewed reveals initially an atrial tachycardia with rates of 124 beats per minute, P-waves though similar to sinus P-waves. Right bundle branch block pattern is noted. QTc is 471 milliseconds. Subsequent EKG reveals a sinus rhythm at a rate of 84 beats per minute. Otherwise, no changes. Telemetry strips still reveal persisting rapid heart rates with sudden deceleration from 1 beat to another, which will be more consistent with termination of an atrial tachycardia than sinus arrhythmia. LABORATORY DATA: White cell count is 9, hemoglobin 12, and platelet count is 158. Sodium 129, potassium 4, BUN is 15, and creatinine 0.8. ASSESSMENT AND PLAN: Zan is a pleasant 73-year-old man with prior history of recurrent atrial arrhythmias observed by Dr. Rubalcava's workup, but structurally normal heart, history of diabetes, and sleep apnea. He is after his left knee replacement surgery, which is recovering without issues. He did develop though an episodes of rapid atrial tachycardia with no other rationale for sinus tachycardia. The onset and termination of this atrial tachycardia episodes were also sudden suggestive of a focal reentry or autonomic mechanism. In the past, he had some success to suppress these episodes with varying doses of metoprolol and today after a dose of flecainide, his episodes also seems to be well suppressed overnight. I think it is reasonable to continue with the current regimen. We did discuss the alternative options, long-term ablation could be considerably desired as an alternative to antiarrhythmic therapy, especially if that is not entirely successful or poses significant side effects. In particular, I would monitor heart rates with a combination of metoprolol and flecainide for bradycardia. For now, this rhythm is likely low thrombogenic poTential, but routine post ortho surgery thromboprophylaxis is a consideration. Have to see this gentleman back in the office in about 6 weeks to discuss treatment options at that time. Job ID: [id number] [facility]
[2018-11-17 12:56] VITALS: TEMP 98.2
[2018-11-17 14:07] VITALS: BP 134/64
--- NOTE | 2018-11-18 05:10 | DIS ---
DATE OF ADMISSION: 11/14/2018 DATE OF DISCHARGE: 11/17/2018 DISCHARGE DIAGNOSES: 1. Atrial tachycardia, improved. 2. Febrile episode postoperatively, stable. 3. Diabetes mellitus type 2, stable. 4. Hyperkalemia, resolved. 5. Status post left total knee arthroplasty on 11/14/2018. 6. Hyponatremia, mild. PRIMARY SERVICE ATTENDIN. Dr. Ochoa with Orthopedic Surgery Service. 2. Dr. Rubalcava with Cardiology Service. 3. Hospitalist Service for medical management. PERTINENT LABORATORY AND X-RAY FINDINGS: Sodium ranged between 129 to 132, potassium ranged between 4.0 to 5.3, magnesium level 1.7. LFTs within normal limits. TSH 3.19. CBC showed a hemoglobin ranged between 12.0 to 15.9. Left lower extremity venous Doppler study dated 11/16/2018, showed no evidence for DVT. HOSPITAL COURSE: The patient was initially admitted for left total knee arthroplasty, undergoing the procedure on 11/14/2018. Postoperatively, the patient was noted with transient febrile episode without focal infectious process identified. The patient did develop sinus tachycardia and questionable atrial tachycardia necessitating a transfer to the telemetry unit and treatment with intravenous metoprolol as well as titration to his current beta-jennifer therapy. The patient was evaluated by the Cardiology Service with recommendations to initiate flecainide due to the atrial arrhythmia. The patient continued to be monitored on the cardiac unit without clinical decompensation. The patient continued to receive physical therapy and was ambulatory with a rolling walker postoperatively. Pain control was obtained with oral regimen and the patient was able to void appropriately. I have examined the patient at the time of discharge and discussed followup instructions. The patient verbalizes understanding and in agreement, ready for discharge on 11/17/2018. DISCHARGE MEDICATIONS: 1. Invokana 100 mg p.o. at bedtime. 2. Plavix 75 mg p.o. daily. 3. Irbesartan 75 mg p.o. at bedtime. 4. Metformin extended release 2000 mg p.o. at bedtime. 5. Protonix 40 mg p.o. daily. 6. Crestor 10 mg p.o. at bedtime. 7. Flomax 0.4 mg p.o. at bedtime. 8. Travatan one drop to each eye at bedtime. 9. Flecainide 50 mg p.o. b.i.d. 10. Felch 10/325 mg 1-2 tablets p.o. q.4 hours p.r.n. pain. 11. Metoprolol tartrate 25 mg p.o. daily p.r.n. tachycardia. 12. Xarelto 10 mg p.o. daily x20 days. FOLLOWUP: The patient to follow up with his primary care provider, Dr. Alcides Dorado within 7 days of discharge. The patient may follow up with Dr. Ramses Ochoa on 12/01/2018 at 11:00 am. The patient will follow up with Dr. Rose and to call his office for appointment time and date. CONDITION ON DISCHARGE: Stable. ACTIVITY: Ad-brian. Rolling walker with ambulation. DIET: ADA. CODE STATUS: Full. DISPOSITION: Home on 11/17/2018. TIME SPENT: Total time preparing and coordinating discharge is 34 minutes. Job ID: [id number]
== END 2018-11-17 14:35 | disposition home or self-care (01) ==
LOC: SDC 05:40 → SJJU 09:08 → 2NO 11-16 13:48 → SDC 11-17 14:35
PROVIDERS: ATTEND Orthopaedic Surgery
PROC: 0SRD0J9 Replacement of Left Knee Joint with Synthetic Substitute, Cemented, Open Approach (ICD-10-PCS; principal; 2018-11-14)
PROC: 8E0YXBZ Computer Assisted Procedure of Lower Extremity (ICD-10-PCS; 2018-11-14)
PROC: 3E0T3BZ Introduction of Anesthetic Agent into Peripheral Nerves and Plexi, Percutaneous Approach (ICD-10-PCS; 2018-11-14)
PROC: 3E0T3BZ Introduction of Anesthetic Agent into Peripheral Nerves and Plexi, Percutaneous Approach (ICD-10-PCS; 2018-11-14)
DX: M17.12 Unilateral primary osteoarthritis, left knee (principal); R50.82 Postprocedural fever; E11.9 Type 2 diabetes mellitus without complications; E87.5 Hyperkalemia; E87.1 Hypo-osmolality and hyponatremia; G47.33 Obstructive sleep apnea (adult) (pediatric); N40.0 Benign prostatic hyperplasia without lower urinary tract symptoms; M19.90 Unspecified osteoarthritis, unspecified site; E78.00 Pure hypercholesterolemia, unspecified; G89.18 Other acute postprocedural pain; I47.1 Supraventricular tachycardia; Z86.73 Personal history of transient ischemic attack (TIA), and cerebral infarction without residual deficits; Z79.02 Long term (current) use of antithrombotics/antiplatelets; Z79.84 Long term (current) use of oral hypoglycemic drugs; Z79.899 Other long term (current) drug therapy; Z88.8 Allergy status to other drugs, medicaments and biological substances; Z96.651 Presence of right artificial knee joint
CPT/HCPCS: 20985; 27447; 64445; 64448; 73560; 80048; 80053; 81001; 82962; 83735; 84443; 85007; 85027; 93005 ×2; 93971; 97110; 97116 ×3; 97139 ×3; 97150; 97530; 98961; C1713; C1776; J3010 ×2; 36415; 36416; 93010; J0690; J1885; J2001; J2250; J2405; J2704; J2765; J2795; J3370; J3490

== ENCOUNTER 2019-02-20 16:40 | Outpatient (CLI) | payer MEDICARE, BC ==
--- NOTE | 2019-02-20 16:52 | RAD ---
XR Chest Pa Lat STANDARD HISTORY: Dyspnea COMPARISON: 04/05/2013 FINDINGS: The heart size is normal. The aorta is tortuous The lungs are well expanded without focal a reas of consolidation, pneumothorax or pleural effusions. There are degenerative changes in the spine IMPRESSION: No radiographic evidence of acute cardiopulmonary process.
== END 2019-02-20 16:41 | disposition home or self-care (01) ==
LOC: BICRAD 16:40
PROVIDERS: ATTEND Internal Medicine Pulmonary Disease
DX: R06.00 Dyspnea, unspecified (principal)
CPT/HCPCS: 71046

== ENCOUNTER 2020-09-11 12:13 | Outpatient (CLI) | payer MEDICARE, BC | END 2020-09-11 12:14 | disposition home or self-care (01) | LOC: BICRAD 12:13 | PROVIDERS: ATTEND Internal Medicine Medical Oncology | DX: M84.375A Stress fracture, left foot, initial encounter for fracture (principal); M79.672 Pain in left foot ==

== ENCOUNTER 2022-02-23 10:34 | Outpatient (CLI) | payer MEDICARE, BC | END 2022-02-23 10:35 | disposition home or self-care (01) | LOC: BICRAD 10:34 | PROVIDERS: ATTEND Podiatrist | DX: M19.071 Primary osteoarthritis, right ankle and foot (principal) ==

== ENCOUNTER 2022-04-22 14:14 | Outpatient (CLI) | payer MEDICARE, BC | END 2022-04-22 14:15 | disposition home or self-care (01) | LOC: RAD 14:14 | PROVIDERS: ATTEND Internal Medicine Medical Oncology | DX: M54.2 Cervicalgia (principal); M43.6 Torticollis; M19.049 Primary osteoarthritis, unspecified hand; M47.812 Spondylosis without myelopathy or radiculopathy, cervical region | CPT/HCPCS: 72040 ==

== ENCOUNTER 2022-10-28 09:17 | Outpatient (CLI) | payer MEDICARE, BC | END 2022-10-28 09:18 | disposition home or self-care (01) | LOC: BICMAMMO 09:17 | PROVIDERS: ATTEND Internal Medicine Hematology & Oncology | DX: M81.0 Age-related osteoporosis without current pathological fracture (principal); M19.049 Primary osteoarthritis, unspecified hand; M85.851 Other specified disorders of bone density and structure, right thigh; M85.852 Other specified disorders of bone density and structure, left thigh | CPT/HCPCS: 77080 ==

== ENCOUNTER 2024-11-07 13:22 | Outpatient (CLI) | payer MEDICARE, BC | END 2024-11-07 13:23 | disposition home or self-care (01) | LOC: BICMAMMO 13:22 | PROVIDERS: ATTEND Internal Medicine Endocrinology, Diabetes & Metabolism | DX: Z13.820 Encounter for screening for osteoporosis (principal); M81.0 Age-related osteoporosis without current pathological fracture | CPT/HCPCS: 77080 ==